=== PATIENT | female | born 1990 | race Caucasian/White ===

== ENCOUNTER 2017-01-25 06:47 | Emergency (ER) | payer OTHER ==
[2017-01-25 06:59] VITALS: BP 118/79; PULSE 89; RESP 16; TEMP 98.4; O2SAT 98
[2017-01-25] MEDS ORDERED: Naproxen 500 MG TAB PO ONE ×2 (07:25→07:59)
--- NOTE | 2017-01-25 07:37 | ED PDOC ---
Lower Extremity Pain/Injury Time Seen by Provider: 01/25/17 07:07 Chief Complaint (Nursing): Lower Extremity Problem/Injury Chief Complaint (Provider): Lower Extremity Problem/Injury History Per: Patient History/Exam Limitations: no limitations Onset/Duration Of Symptoms: Days (since 01/16/2017) Current Symptoms Are (Timing): Still Present Additional Complaint(s): 26 y/o female presents to the emergency department with a complaint of a right hip pain that radiates to the right knee after pulling something during work since 01/16/2017. Patient states it is painful to work and pain had been increasing since . Reports using Bengay, walking more than usual, ice, taking 10mg of cyclobenzaprine and 400 mg of Ibuprofen without the relief of symptoms. Denies trauma, fever, back pain, chills, nausea, vomiting, diarrhea, vaginal bleeding or discomfort, and urination problems. PMD: Dr. Morgan Past Medical History Reviewed: Historical Data, Nursing Documentation, Vital Signs Vital Signs: Last Vital Signs Temp 98.4 F 01/25/17 06:55 Pulse 89 01/25/17 06:55 Resp 16 01/25/17 06:55 BP 118/79 01/25/17 06:55 Pulse Ox 98 01/25/17 06:55 - Medical History PMH: No Chronic Diseases - Surgical History Surgical History: No Surg Hx - Family History Family History: States: Unknown Family Hx - Social History Current smoker - smoking cessation education provided: No Alcohol: None Drugs: Denies - Immunization History Hx Tetanus Toxoid Vaccination: (UTD) - Home Medications Home Medications: Ambulatory Orders Medication Instructions Recorded Cephalexin [Keflex] 500 mg PO TID #21 cap 04/26/15 Naproxen [Naprosyn] 500 mg PO BID PRN #20 tablet 01/25/17 - Allergies Allergies/Adverse Reactions: Allergies Allergy/AdvReac Type Severity Reaction Status Date / Time No Known Allergies Allergy Verified 04/26/15 20:11 Review of Systems ROS Statement: Except As Marked, All Systems Reviewed And Found Negative Constitutional: Negative for: Fever, Chills, Other (Trauma) Gastrointestinal: Negative for: Nausea, Vomiting, Diarrhea Genitourinary Female: Negative for: Dysuria, Frequency, Incontinence, Hematuria , Vaginal Discharge, Vaginal Bleeding Musculoskeletal: Positive for: Leg Pain (Right), Other (Right hip and knee). Negative for: Back Pain Physical Exam - Reviewed Nursing Documentation Reviewed: Yes Vital Signs Reviewed: Yes - Physical Exam Appears: Positive for: Non-toxic, No Acute Distress Head Exam: Positive for: ATRAUMATIC, NORMOCEPHALIC Skin: Positive for: Normal Color, Warm, Dry Extremity: Positive for: Tenderness (Tenderness along the sides of the patella bilaterally. Tenderness of the lateral aspect of the right thigh. Tenderness on internal and external rotation of the femur). Negative for: Normal ROM, Other ( No tenderness quadricep tendon of the knee) Neurologic/Psych: Positive for: Alert, Oriented - ECG O2 Sat by Pulse Oximetry: 98 (RA) Pulse Ox Interpretation: Normal - Radiology X-Ray: Viewed By Me X-Ray Interpretation: No Acute Disease - Progress Re-evaluation Time: 10:09 Condition: Re-examined, Improved Medical Decision Making Medical Decision Making: Time: 7:07 Initial plan: --Dipstick --ED Urine (POC) --Knee 3 Views RT (RAD) --Tylenol 650 mg PO --Naproxen 500 mg PO --Femur MIN 2 views RT --HIP 1 View w/ pelvis RT --Revaluation Scribe Attestation: Documented by Ramona Orellana, acting as a scribe for Jazzy Olivares MD. Provider Scribe Attestation: All medical record entries made by the Scribe were at my direction and personally dictated by me. I have reviewed the chart and agree that the record accurately reflects my personal performance of the history, physical exam, medical decision making, and the department course for this patient. I have also personally directed, reviewed, and agree with the discharge instructions and disposition. Disposition - Clinical Impression Clinical Impression: Hip pain - Patient ED Disposition Is Patient to be Admitted: No Doctor Will See Patient In The: Office Counseled Patient/Family Regarding: Diagnosis, Need For Followup, Rx Given - Disposition Referrals: Desmond Morgan MD [Medical Doctor] - Disposition: Routine/Home Disposition Time: 10:10 Condition: IMPROVED Prescriptions: Naproxen [Naprosyn] 500 mg PO BID PRN #20 tablet PRN Reason: Pain, Moderate (4-7) Forms: [facility] ED School/Work Excuse - POA Present On Arrival: None
--- NOTE | 2017-01-26 09:49 | RAD ---
HISTORY: pain lat thigh from hip to knee x 1week COMPARISON: No prior FINDINGS: BONES: Normal. No fracture. JOINTS: Normal. No osteoarthritis. SOFT TISSUE: Normal. OTHER FINDINGS: None . IMPRESSION: Normal Bone Xray.
== END 2017-01-25 10:20 | disposition home or self-care (01) ==
LOC: H.ER 06:47
DX: M25.551 Pain in right hip (principal)